=== PATIENT | male | born 2005 | race Caucasian/White ===

== ENCOUNTER → 2024-01-03 10:26 | Outpatient (REF) | payer OTHER, SELFPAY | LOC: HWRAD 10:26 | PROVIDERS: ATTENDING PHYSICIAN Urology; FAMILY PHYSICIAN Nurse Practitioner Family | DX: E80.6 Other disorders of bilirubin metabolism (principal); R35.0 Frequency of micturition | CPT/HCPCS: 76700; 76770 ==

== ENCOUNTER 2024-12-01 18:46 | Emergency (ER) | payer OTHER, SELFPAY ==
[2024-12-01 18:49] VITALS: BP 113/74
--- NOTE | 2024-12-01 20:27 | ED.GENMED ---
History of Present Illness
General
Chief Complaint: Breathing Problem
Time Seen by Provider: 12/01/24 19:56
History of Present Illness
History of Present Illness:
Patient is a 19-year-old man with history of asthma presenting to the emergency room with shortness of breath. Patient states for the past 3 weeks he has been having wheezing and shortness of breath. He has also been having a cough that has
improved. He does state that short of breath is only when he takes a deep breath. He does state that he is been wheezing with crackles. Has gone to urgent care twice and given prednisone as well as amoxicillin. He went to [facility] emergency
department and was given doxycycline 2 days ago. He had blood work and chest x-ray that was negative. He was diagnosed with bronchitis. He has been taking his albuterol as well as nebulizers and feels that there is something else going on. He
also spoke to his blower and compressor assembler who recommended taking Zyrtec as well as Mucinex. He took the Mucinex for 1 day and then stopped. He did notice improvement with the Mucinex. He is concerned that it could be cancer. No long car rides or long plane
rides. No leg swelling hemoptysis chest pain family or personal history of blood clots.
Past History
Social History
Tobacco: Non-smoker
Alcohol: None
Drug: None
Phy Exam
Physical Exam
Physical Exam:
GENERAL: in no acute distress
HEENT: normocephalic, extraocular movements intact, moist oral mucosa
NECK: normal inspection
RESPIRATORY: no respiratory distress, wheezing and crackles in all lung menendez on deep inspiration, no stridor
CARDIOVASCULAR: regular rate and rhythm
ABDOMEN/: soft, non-distended, non-tender to palpation, no rebound or guarding
EXTREMITIES: non-tender, no edema/swelling
NEUROLOGIC: awake and alert, moves all extremities
SKIN: warm
Course
Orders/Labs/Results
Orders:
Orders
12/01/24 20:27
CT Chest W/o Iv Contrast Urgent
Comment:
Reason For Exam: crackles all lung menendez, normal xr
Vital Signs
Initial and Last Documented VS:
Initial Vital Signs
Temp Pulse Resp BP Pulse Ox
98.1 F 81 18 113/74 97
12/01/24 18:49 12/01/24 18:49 12/01/24 18:49 12/01/24 18:49 12/01/24 18:49
Last Documented Vital Signs
Temp Pulse Resp BP Pulse Ox
98.1 F 81 18 113/74 97
12/01/24 18:49 12/01/24 18:49 12/01/24 18:49 12/01/24 18:49 12/01/24 18:49
MDM/Problems Addressed
Differential Diagnosis Includes:
Patient is a 19-year-old with history of asthma presenting to the emergency department with shortness of breath has been ongoing for 3 weeks. Vitals unremarkable exam does show wheezing and crackles in all lung menendez upon deep inspiration.
Consistent viral infection versus atypical pneumonia versus atelectasis versus new onset CHF. Considered ILD though less likely. Considered PE though patient is not hypoxic tachycardic and without risk factors. After shared decision making we
will proceed with CT scan of the chest given that he has had 2 normal chest x-rays. Family would prefer without IV contrast which is reasonable given low suspicion for PE. I did want to obtain blood work however patient's and patient's family
members at bedside declined as patient had blood work done 2 days ago that was normal including basics and a BNP.. He states that his symptoms have not been worsening just persistent. Given the symptoms have been persistent we will hold off on
repeating blood work.
*Critical Care Note
Total Time (30-74mins, 75-104mins- exclusive of procedures): Not Applicable
Update Note
Update Note:
CT scan per my interpretation with no acute abnormality. Per the official read there is no acute abnormality. Patient is extremely relieved of this finding. Will discharge patient at this time. He is advised to continue taking doxycycline,
zyrtec, symbicort and inhalers and add back the Mucinex. Patient will follow-up with pulmonology if symptoms persist.
ED Attending Note
-
Portions of this chart may have been created with voice recognition software.� Occasional wrong word or��sound alike� substitutions may have occurred due to the inherent limitations of voice recognition software.
Discharge Plan
Departure
Patient Disposition: Home (Routine Discharge)
Date of Disposition: 12/01/24
Time of Disposition: 21:48
Patient with high blood pressure during this ER visit?: No
Discharge Problem:
Shortness of breath
Instructions: Shortness of Breath (Dyspnea) (DC)
Prescriptions:
No Action
epinephrine [EpiPen Jr] 0.15 MG/0.3/SYRINGE auto-injector
0.15 mg IM PRN PRN (Reason: difficulty breathing) Qty: 1 0RF
Referrals:
UNKNOWN - PT DOES,NOT KNOW [Unknown Provider]
Interventions
Interventions:
*Risk Screen - Suicide Last Done: 12/01/24 18:49
*Neglect/Abuse Screening Last Done: 12/01/24 18:49
Discharge Date and Time
Print Language: URDU
== END 2024-12-01 22:03 | disposition home or self-care (01) ==
LOC: EMR 18:46
PROVIDERS: EMERGENCY PHYSICIAN Student in an Organized Health Care Education/Training Program; FAMILY PHYSICIAN Nurse Practitioner Family
DX: R06.02 Shortness of breath (principal); J45.909 Unspecified asthma, uncomplicated
CPT/HCPCS: 99284; 71250